=== PATIENT | male | born 1965 | race Caucasian/White ===

== ENCOUNTER 2021-10-28 11:36 | Emergency (ER) | payer BC | END 2021-10-28 13:59 | disposition home or self-care (01) | LOC: JP.ED 11:36 | DX: S63.501A Unspecified sprain of right wrist, initial encounter (principal); W19.XXXA Unspecified fall, initial encounter; Y92.59 Other trade areas as the place of occurrence of the external cause | CPT/HCPCS: 73110-26-RT; 73110-RT; 99283-25; 99285 ==